=== PATIENT | male | born 1950 | race Two or more races ===

== ENCOUNTER 2024-10-30 17:46 | Inpatient (IN) | payer OTHER ==
[~2024-10-30] VITALS: Ht 165.1 cm; Wt 61.7 kg
[2024-10-30 19:12] LABS: PLATELET COUNT (AUTO) 379 K/uL (150-450); RED BLOOD CELL COUNT(AUTO) 4.36 MIL/uL (4.50-5.90); RED CELL DISTRIBUTION WIDTH 15.0 % (11.5-14.5); WHITE BLOOD COUNT (AUTO) 13.4 K/uL (4.5-11.0)
[2024-10-30 19:14] LABS: SODIUM SERUM 138 mmol/L (136-145)
[2024-10-30 19:15] LABS: CREATININE 1.12 mg/dL (0.60-1.30)
[2024-10-30 19:16] LABS: CALCIUM, TOTAL 8.8 mg/dL (8.8-10.5); GLOMERULAR FILTR. RATE CALC > 60 mL/min (>60); GLUCOSE,RANDOM 116 mg/dL (70-110); UREA NITROGEN, BLOOD 38 mg/dL (7-18)
[2024-10-30] MEDS ORDERED: 0.9% SODIUM CHLORIDE 10 ML SYRINGE IVP PRN (20:00)
[2024-10-30] MEDS: CefTRIAXone 1 GM/DEXTROSE 50 ML IV SCH (20:23)
[2024-10-30] MEDS: SODIUM CHLORIDE 0.9% 1,700 ML IV ONE (20:23)
[2024-10-30 20:27] LABS: LACTIC ACID 1.0 mmol/L (0.4-2.0)
[2024-10-30 20:31] LABS: CALCIUM, TOTAL 8.6 mg/dL (8.8-10.5); CREATININE 1.08 mg/dL (0.60-1.30); GLOMERULAR FILTR. RATE CALC > 60 mL/min (>60); GLUCOSE,RANDOM 110 mg/dL (70-110); SODIUM SERUM 136 mmol/L (136-145); UREA NITROGEN, BLOOD 37 mg/dL (7-18)
[2024-10-30 20:36] LABS: ASPARTATE AMINOTRANSFERASE 70 U/L (15-37); LACTATE DEHYDROGENASE 152 U/L (85-227); TOTAL PROTEIN, SERUM 6.8 g/dL (6.4-8.2)
[2024-10-31 03:20] LABS: APPEARANCE,URINE CLEAR (CLEAR); GLUCOSE, URINE (UA) NEGATIVE (NEGATIVE); LEUKOCYTE ESTERASE ,URINE NEGATIVE (NEGATIVE); NITRATE,URINE NEGATIVE (NEGATIVE); OCCULT BLOOD,URINE NEGATIVE (NEGATIVE); PH,URINE DRUG SCREEN 6.0 (5.0-8.0); SPECIFIC GRAVITIY, URINE 1.021 (1.003-1.030)
[2024-10-31 03:26] LABS: AMPHET/METH SCREEN,URINE NEGATIVE (NEGATIVE); BARBITURATE SCREEN, URINE NEGATIVE (NEGATIVE); CANNABINOID SCREEN,URINE NEGATIVE (NEGATIVE); COCAINE SCREEN,URINE NEGATIVE (NEGATIVE); METHADONE SCREEN, URINE NEGATIVE (NEGATIVE)
[2024-10-31 03:36] LABS: ALCOHOL, URINE DRUG SCREEN NEGATIVE (NEGATIVE)
[2024-10-31] MEDS: VANCOMYCIN 1GM/WATER(PEG/NADA) 200 ML IV ONE (03:50)
[2024-10-31 05:45] VITALS: BP 157/91; PULSE 80; RESP 20; TEMP 98.4; O2SAT 98
[2024-10-31 07:06] LABS: CALCIUM, TOTAL 8.1 mg/dL (8.8-10.5); CREATININE 1.17 mg/dL (0.60-1.30); GLOMERULAR FILTR. RATE CALC > 60 mL/min (>60); GLUCOSE,RANDOM 128 mg/dL (70-110); SODIUM SERUM 139 mmol/L (136-145); UREA NITROGEN, BLOOD 32 mg/dL (7-18)
[2024-10-31 08:00] VITALS: BP 149/76; PULSE 80; RESP 20; TEMP 98.6; O2SAT 98
[2024-10-31] MEDS ORDERED: GADOTERATE MEGLUMINE 10 MMOL/20 ML VIAL IVP ONE (10:31)
[2024-10-31] MEDS ORDERED: LOSA-382 PO (16:57)
[2024-10-31 20:00] VITALS: BP 144/88; PULSE 91; RESP 16; TEMP 99.3; O2SAT 97
[2024-10-31] MEDS: VANCOMYCIN 750 MG/WATER(PEG) 150 ML IV SCH (20:22)
[2024-10-31] MEDS ORDERED: SODIUM CHLORIDE 0.9% 500 ML IV ONE (20:24)
[2024-11-01 04:25] VITALS: BP 162/92; PULSE 76; RESP 16; TEMP 98.8; O2SAT 100
[2024-11-01 07:19] LABS: CALCIUM, TOTAL 8.4 mg/dL (8.8-10.5); CREATININE 1.12 mg/dL (0.60-1.30); GLOMERULAR FILTR. RATE CALC > 60 mL/min (>60); GLUCOSE,RANDOM 101 mg/dL (70-110); SODIUM SERUM 138 mmol/L (136-145); UREA NITROGEN, BLOOD 26 mg/dL (7-18)
[2024-11-01 08:14] VITALS: BP 168/74; PULSE 82; RESP 18; TEMP 99.1; O2SAT 100
[2024-11-01] MEDS: RINGERS SOLUTION,LACTATED 1,000 ML IV SCH (11:17)
[2024-11-01 14:51] VITALS: BP 111/58; PULSE 91; RESP 18; TEMP 98.4; O2SAT 99
[2024-11-01 19:58] VITALS: BP 119/60; PULSE 82; RESP 18; TEMP 98.2; O2SAT 98
[2024-11-02 03:45] VITALS: BP 146/93; PULSE 82; RESP 20; TEMP 98.2; O2SAT 98
[2024-11-02 08:02] LABS: CALCIUM, TOTAL 7.9 mg/dL (8.8-10.5); CREATININE 1.09 mg/dL (0.60-1.30); GLOMERULAR FILTR. RATE CALC > 60 mL/min (>60); GLUCOSE,RANDOM 103 mg/dL (70-110); SODIUM SERUM 138 mmol/L (136-145); UREA NITROGEN, BLOOD 25 mg/dL (7-18)
[2024-11-02 08:34] VITALS: BP 164/91; PULSE 76; RESP 20; TEMP 99; O2SAT 99
[2024-11-02 09:34] VITALS: BP 150/99; PULSE 91; RESP 18; TEMP 98.8; O2SAT 98
[2024-11-02 20:52] VITALS: BP 136/81; PULSE 82; RESP 18; TEMP 98.2; O2SAT 98
[2024-11-03 04:08] VITALS: BP 154/88; PULSE 74; RESP 18; TEMP 99; O2SAT 99
[2024-11-03 06:58] LABS: CALCIUM, TOTAL 8.0 mg/dL (8.8-10.5); CREATININE 1.03 mg/dL (0.60-1.30); GLOMERULAR FILTR. RATE CALC > 60 mL/min (>60); GLUCOSE,RANDOM 142 mg/dL (70-110); SODIUM SERUM 139 mmol/L (136-145); UREA NITROGEN, BLOOD 26 mg/dL (7-18)
[2024-11-03 07:00] VITALS: BP 143/75; PULSE 75; RESP 19; TEMP 99.1; O2SAT 97
[2024-11-03] MEDS: MORPHINE SULFATE 2 MG/ML SYRINGE IVP PRN (09:25)
[2024-11-03 19:32] VITALS: BP 118/69; PULSE 75; RESP 18; TEMP 99; O2SAT 99
[2024-11-04 02:41] VITALS: BP 130/80; PULSE 79; RESP 18; TEMP 98.1; O2SAT 99
[2024-11-04 06:17] LABS: CALCIUM, TOTAL 8.4 mg/dL (8.8-10.5); CREATININE 1.18 mg/dL (0.60-1.30); GLOMERULAR FILTR. RATE CALC > 60 mL/min (>60); GLUCOSE,RANDOM 98 mg/dL (70-110); SODIUM SERUM 138 mmol/L (136-145); UREA NITROGEN, BLOOD 28 mg/dL (7-18)
[2024-11-04 09:03] VITALS: BP 145/74; PULSE 68; RESP 18; TEMP 98.4; O2SAT 99
[2024-11-04 19:45] VITALS: BP 134/73; PULSE 72; RESP 18; TEMP 98.6; O2SAT 98
[2024-11-05 03:55] VITALS: BP 135/77; PULSE 74; RESP 18; TEMP 98.2; O2SAT 98
[2024-11-05 06:59] LABS: CALCIUM, TOTAL 8.3 mg/dL (8.8-10.5); CREATININE 1.01 mg/dL (0.60-1.30); GLOMERULAR FILTR. RATE CALC > 60 mL/min (>60); GLUCOSE,RANDOM 101 mg/dL (70-110); SODIUM SERUM 138 mmol/L (136-145); UREA NITROGEN, BLOOD 25 mg/dL (7-18)
[2024-11-05 09:26] VITALS: BP 133/67; PULSE 59; RESP 18; TEMP 98; O2SAT 98
[2024-11-05 20:00] VITALS: BP 128/56; PULSE 68; RESP 18; TEMP 98.4; O2SAT 99
[2024-11-05] MEDS: HEPARIN SODIUM,PORCINE 5,000 UNITS/ML VIAL SQ SCH (23:35)
[2024-11-06 04:00] VITALS: BP 130/74; PULSE 72; RESP 18; TEMP 98.4; O2SAT 98
[2024-11-06 07:37] LABS: CALCIUM, TOTAL 8.3 mg/dL (8.8-10.5); CREATININE 0.95 mg/dL (0.60-1.30); GLOMERULAR FILTR. RATE CALC > 60 mL/min (>60); GLUCOSE,RANDOM 95 mg/dL (70-110); SODIUM SERUM 137 mmol/L (136-145); UREA NITROGEN, BLOOD 23 mg/dL (7-18)
[2024-11-06] MEDS: ACETAMINOPHEN 325 MG TABLET PO PRN (08:30)
[2024-11-06 08:52] VITALS: BP 159/84; PULSE 76; RESP 18; TEMP 97.7; O2SAT 98
[2024-11-06 13:54] LABS: APPEARANCE,SPUN,BODY FLUID CLEAR (CLEAR); APPEARANCE,UNSPUN,BODY FLUID SLIGHTLY CLOUDY (CLEAR); BODY FLUID RBC 137.0 /cu. mm.; COLOR,BODY FLUID LT YELLOW (LT YELLOW); SPECIMENTYPE,BODY FLUID SYNOVIAL; TOTAL VOLUME,BODY FLUID 0.5 mL; WBC, BODY FLUID 197.77 /cu. mm.
[2024-11-06 13:55] LABS: BASOPHILS,BODY FLUID 0 %; EOSINOPHILS,BF (ANAL) 0 %; LYMPHOCYTES,BODY FLUID 6 %; MONOCYTES,BODY FLUID 13 %; NEUTROPHILS,BODY FLUID 81 %
[2024-11-06 20:02] VITALS: BP 120/68; PULSE 82; RESP 19; TEMP 98.6; O2SAT 99
[2024-11-07 06:32] VITALS: BP 151/72; PULSE 62; RESP 19; TEMP 98.4; O2SAT 99
[2024-11-07 06:50] LABS: CALCIUM, TOTAL 9.1 mg/dL (8.8-10.5); CREATININE 1.23 mg/dL (0.60-1.30); GLOMERULAR FILTR. RATE CALC 58.0 mL/min (>60); GLUCOSE,RANDOM 96.0 mg/dL (70-110); SODIUM SERUM 139.0 mmol/L (136-145); UREA NITROGEN, BLOOD 32.0 mg/dL (7-18)
[2024-11-07 08:30] VITALS: BP 158/82; PULSE 65; RESP 18; TEMP 98.2; O2SAT 100
[2024-11-07] MEDS ORDERED: SODIUM CHLORIDE 0.9% 500 ML IV ONE ×2 (08:42→20:38)
[2024-11-07 20:00] VITALS: BP 146/77; PULSE 70; RESP 18; TEMP 97.5; O2SAT 98
[2024-11-08 04:55] VITALS: BP 136/72; PULSE 97; RESP 18; TEMP 98.1; O2SAT 98
[2024-11-08 07:33] LABS: CALCIUM, TOTAL 9.2 mg/dL (8.8-10.5); CREATININE 1.03 mg/dL (0.60-1.30); GLOMERULAR FILTR. RATE CALC > 60 mL/min (>60); GLUCOSE,RANDOM 133 mg/dL (70-110); SODIUM SERUM 140 mmol/L (136-145); UREA NITROGEN, BLOOD 24 mg/dL (7-18)
[2024-11-08] MEDS: VANCOMYCIN 1GM/WATER(PEG/NADA) 200 ML IV SCH (07:57)
[2024-11-08 08:44] VITALS: BP 145/80; PULSE 79; RESP 18; TEMP 98.4; O2SAT 100
[2024-11-08 20:31] VITALS: BP 111/80; PULSE 79; RESP 18; TEMP 99; O2SAT 96
[2024-11-09 04:42] VITALS: BP 145/85; PULSE 81; RESP 18; TEMP 99; O2SAT 98
[2024-11-09 07:44] LABS: CALCIUM, TOTAL 9.0 mg/dL (8.8-10.5); CREATININE 1.00 mg/dL (0.60-1.30); GLOMERULAR FILTR. RATE CALC > 60 mL/min (>60); GLUCOSE,RANDOM 91 mg/dL (70-110); SODIUM SERUM 140 mmol/L (136-145); UREA NITROGEN, BLOOD 21 mg/dL (7-18)
[2024-11-09 08:17] VITALS: BP 158/93; PULSE 80; RESP 18; TEMP 98.2; O2SAT 99
[2024-11-09 16:30] VITALS: BP 136/85; PULSE 75; RESP 18; TEMP 98.6; O2SAT 99
[2024-11-09 17:30] LABS: PLATELET COUNT (AUTO) 581 K/uL (150-450); RED BLOOD CELL COUNT(AUTO) 3.99 MIL/uL (4.50-5.90); RED CELL DISTRIBUTION WIDTH 15.0 % (11.5-14.5); WHITE BLOOD COUNT (AUTO) 11.5 K/uL (4.5-11.0)
[2024-11-09 19:52] VITALS: BP 122/85; PULSE 89; RESP 18; TEMP 98.1; O2SAT 97
[2024-11-10 04:09] VITALS: BP 153/90; PULSE 83; RESP 19; TEMP 98.8; O2SAT 100
[2024-11-10 08:00] VITALS: BP 139/84; PULSE 73; RESP 20; TEMP 97.9; O2SAT 99
[2024-11-10 08:14] LABS: CALCIUM, TOTAL 8.6 mg/dL (8.8-10.5); CREATININE 1.13 mg/dL (0.60-1.30); GLOMERULAR FILTR. RATE CALC > 60 mL/min (>60); GLUCOSE,RANDOM 108 mg/dL (70-110); SODIUM SERUM 142 mmol/L (136-145); UREA NITROGEN, BLOOD 24 mg/dL (7-18)
[2024-11-10 19:56] VITALS: BP 121/79; PULSE 80; RESP 20; TEMP 98.9; O2SAT 97
[2024-11-11 04:47] VITALS: BP 131/87; PULSE 89; RESP 20; TEMP 99; O2SAT 97
[2024-11-11 06:59] LABS: CALCIUM, TOTAL 9.4 mg/dL (8.8-10.5); CREATININE 1.10 mg/dL (0.60-1.30); GLOMERULAR FILTR. RATE CALC > 60 mL/min (>60); GLUCOSE,RANDOM 97 mg/dL (70-110); SODIUM SERUM 137 mmol/L (136-145); UREA NITROGEN, BLOOD 26 mg/dL (7-18)
[2024-11-11 07:37] VITALS: BP 140/74; PULSE 87; RESP 20; TEMP 99; O2SAT 98
[2024-11-11] MEDS: CEPHALEXIN MONOHYDRATE 500 MG CAPSULE PO SCH (16:27)
[2024-11-11 18:40] VITALS: BP 118/66; RESP 18; O2SAT 95
[2024-11-11 20:32] VITALS: BP 125/70; PULSE 76; RESP 18; TEMP 99.3; O2SAT 98
[2024-11-11] MEDS: SULFAMETHOX/TRIMETH DS 800-160 MG/TABLET PO SCH (20:41)
[2024-11-11] MEDS: ZOLPIDEM TARTRATE 5 MG TABLET PO PRN (21:46)
[2024-11-12 06:05] VITALS: BP 146/86; PULSE 83; RESP 18; TEMP 98.1; O2SAT 97
[2024-11-12 07:36] LABS: CALCIUM, TOTAL 8.4 mg/dL (8.8-10.5); CREATININE 1.18 mg/dL (0.60-1.30); GLOMERULAR FILTR. RATE CALC > 60 mL/min (>60); GLUCOSE,RANDOM 91 mg/dL (70-110); SODIUM SERUM 138 mmol/L (136-145); UREA NITROGEN, BLOOD 27 mg/dL (7-18)
[2024-11-12 08:31] VITALS: BP 142/86; PULSE 79; RESP 18; TEMP 97.8; O2SAT 98
[2024-11-12 20:13] VITALS: BP 108/65; PULSE 66; RESP 18; TEMP 98.8; O2SAT 96
[2024-11-13 03:58] VITALS: BP 117/80; PULSE 70; RESP 18; TEMP 98.4; O2SAT 96
[2024-11-13 06:52] LABS: CALCIUM, TOTAL 8.7 mg/dL (8.8-10.5); CREATININE 1.48 mg/dL (0.60-1.30); GLOMERULAR FILTR. RATE CALC 47.0 mL/min (>60); GLUCOSE,RANDOM 84.0 mg/dL (70-110); SODIUM SERUM 136.0 mmol/L (136-145); UREA NITROGEN, BLOOD 32.0 mg/dL (7-18)
[2024-11-13 08:00] VITALS: BP 103/64; PULSE 80; RESP 18; O2SAT 96
[2024-11-13 16:00] VITALS: BP 126/77; PULSE 72; RESP 18; TEMP 98.2; O2SAT 96
[2024-11-13 20:15] VITALS: BP 102/60; PULSE 69; RESP 18; TEMP 99; O2SAT 99
[2024-11-14 03:10] VITALS: BP 111/64; PULSE 78; RESP 18; TEMP 99; O2SAT 96
[2024-11-14 08:04] VITALS: BP 114/70; PULSE 79; RESP 18; TEMP 99; O2SAT 97
[2024-11-14 13:18] VITALS: BP 121/68; RESP 16; O2SAT 97
[2024-11-14 17:54] VITALS: BP 121/72; RESP 18; O2SAT 98
[2024-11-14 20:45] VITALS: BP 128/76; PULSE 71; RESP 18; TEMP 98.6; O2SAT 97
[2024-11-15 04:30] VITALS: BP 116/60; PULSE 74; RESP 18; TEMP 98.2; O2SAT 96
[2024-11-15 06:54] LABS: PLATELET COUNT (AUTO) 455 K/uL (150-450); RED BLOOD CELL COUNT(AUTO) 4.16 MIL/uL (4.50-5.90); RED CELL DISTRIBUTION WIDTH 14.9 % (11.5-14.5); WHITE BLOOD COUNT (AUTO) 9.6 K/uL (4.5-11.0)
[2024-11-15 06:59] LABS: CALCIUM, TOTAL 9.8 mg/dL (8.8-10.5); CREATININE 1.69 mg/dL (0.60-1.30); GLOMERULAR FILTR. RATE CALC 40.0 mL/min (>60); GLUCOSE,RANDOM 88.0 mg/dL (70-110); SODIUM SERUM 134.0 mmol/L (136-145); UREA NITROGEN, BLOOD 41.0 mg/dL (7-18)
[2024-11-15 08:21] VITALS: BP 118/76; PULSE 77; RESP 18; TEMP 98; O2SAT 98
[2024-11-15] MEDS: SODIUM ZIRCONIUM CYCLOSILICATE 5 GM POWDER PACKET PO ONE (11:00)
[2024-11-15] MEDS: SODIUM CHLORIDE 0.9% 1,000 ML IV ONE (11:00)
[2024-11-15 16:55] VITALS: BP 151/87; PULSE 87; RESP 18; O2SAT 99
[2024-11-15 20:01] VITALS: BP 115/69; PULSE 72; RESP 18; TEMP 98.4; O2SAT 97
[2024-11-16 04:40] VITALS: BP 126/68; PULSE 54; RESP 18; TEMP 97.7; O2SAT 100
[2024-11-16 08:42] VITALS: BP 148/81; PULSE 63; RESP 18; TEMP 98.2; O2SAT 100
[2024-11-16] MEDS: CIPROFLOXACIN HCL 0.3% 2.5 ML OPHTHALMIC SOLUTION OD SCH (10:00)
[2024-11-16 11:03] LABS: CALCIUM, TOTAL 9.8 mg/dL (8.8-10.5); CREATININE 1.67 mg/dL (0.60-1.30); GLOMERULAR FILTR. RATE CALC 41.0 mL/min (>60); GLUCOSE,RANDOM 82.0 mg/dL (70-110); SODIUM SERUM 136.0 mmol/L (136-145); UREA NITROGEN, BLOOD 41.0 mg/dL (7-18)
[2024-11-16 19:40] VITALS: BP 132/78; PULSE 82; RESP 18; TEMP 98.8; O2SAT 98
[2024-11-17 05:04] VITALS: BP 132/86; PULSE 75; RESP 18; TEMP 98.1; O2SAT 99
[2024-11-17 08:26] VITALS: BP 127/86; PULSE 73; RESP 18; TEMP 98.2; O2SAT 96
[2024-11-17] MEDS ORDERED: AMLO-257 PO (10:11)
[2024-11-17] MEDS ORDERED: CEPH-558 PO (10:12)
[2024-11-17] MEDS ORDERED: CIPR2.5D17 OD (10:14)
[2024-11-17] MEDS ORDERED: ACET-2247 PO (10:15)
[2024-11-17 11:03] LABS: CALCIUM, TOTAL 10.1 mg/dL (8.8-10.5); CREATININE 1.45 mg/dL (0.60-1.30); GLOMERULAR FILTR. RATE CALC 48.0 mL/min (>60); GLUCOSE,RANDOM 118.0 mg/dL (70-110); SODIUM SERUM 135.0 mmol/L (136-145); UREA NITROGEN, BLOOD 35.0 mg/dL (7-18)
== END 2024-11-17 15:15 | DRG 871 ==
LOC: EMS 17:46 → EDH 23:44 → 6S 10-31 05:41
PROVIDERS: ADMIT Internal Medicine; ATTEND Internal Medicine
PROC: GZ58ZZZ Individual Psychotherapy, Cognitive-Behavioral (ICD-10-PCS; 2024-11-01)
PROC: GZ56ZZZ Individual Psychotherapy, Supportive (ICD-10-PCS; 2024-11-01)
PROC: 0SJG3ZZ Inspection of Left Ankle Joint, Percutaneous Approach (ICD-10-PCS; principal; 2024-11-06)
DX: A41.9 Sepsis, unspecified organism (principal); G92.9 Unspecified toxic encephalopathy; M00.9 Pyogenic arthritis, unspecified; L03.116 Cellulitis of left lower limb; N17.9 Acute kidney failure, unspecified; D64.9 Anemia, unspecified; F29 Unspecified psychosis not due to a substance or known physiological condition; S93.419A Sprain of calcaneofibular ligament of unspecified ankle, initial encounter; S90.02XA Contusion of left ankle, initial encounter; S80.02XA Contusion of left knee, initial encounter; E87.5 Hyperkalemia; I10 Essential (primary) hypertension; R74.01 Elevation of levels of liver transaminase levels; R62.7 Adult failure to thrive; X58.XXXA Exposure to other specified factors, initial encounter; Z88.0 Allergy status to penicillin; Y93.89 Activity, other specified; Y92.89 Other specified places as the place of occurrence of the external cause; Y99.8 Other external cause status; Z91.199 Patient's noncompliance with other medical treatment and regimen due to unspecified reason
CPT/HCPCS: 71045; 73722; 76942; 80048; 80053; 80202; 80307; 81003; 83036; 83605; 83615; 84132; 84145; 85025; 85610; 85730; 87040; 87070; 87081; 87205; 89051; 97163; 97530; 99285; G0378; G0480; J0696; J1644; J2270; J7030; J7040; J7120; 36415-L1; 36415-TC

== ENCOUNTER 2024-12-05 15:15 | Inpatient (IN) | payer OTHER ==
[~2024-12-05] VITALS: Ht 167.6 cm; Wt 47.7 kg
[~2024-12-05 15:15] MED LIST: ACET-2247 PO; AMLO-257 PO; CEPH-558 PO; CIPR2.5D17 OD
[2024-12-05 15:52] LABS: PLATELET COUNT (AUTO) 423 K/uL (150-450); RED BLOOD CELL COUNT(AUTO) 4.12 MIL/uL (4.50-5.90); RED CELL DISTRIBUTION WIDTH 15.8 % (11.5-14.5); WHITE BLOOD COUNT (AUTO) 9.7 K/uL (4.5-11.0)
[2024-12-05 16:07] LABS: CALCIUM, TOTAL 8.7 mg/dL (8.8-10.5); CREATININE 1.05 mg/dL (0.60-1.30); GLOMERULAR FILTR. RATE CALC > 60 mL/min (>60); GLUCOSE,RANDOM 143 mg/dL (70-110); SODIUM SERUM 147 mmol/L (136-145); UREA NITROGEN, BLOOD 36 mg/dL (7-18)
[2024-12-05 16:14] LABS: COVID AG,FIA SOURCE NASAL SWAB
[2024-12-05] MEDS: ACETAMINOPHEN 500 MG TABLET PO ONE (16:46)
[2024-12-05 16:50] LABS: SARS-COV2 (COVID) ANTIGEN,FIA Negative (Negative)
[2024-12-05] MEDS: SODIUM CHLORIDE 0.45% 1,000 ML IV ONE (19:56)
[2024-12-05 22:03] VITALS: BP 144/93; PULSE 72; RESP 18; TEMP 98.1; O2SAT 97
[2024-12-05] MEDS: ACETAMINOPHEN 325 MG TABLET PO PRN (23:53)
[2024-12-05] MEDS: HEPARIN SODIUM,PORCINE 5,000 UNITS/ML VIAL SQ SCH (23:53)
[2024-12-06 04:07] VITALS: BP 155/88; PULSE 66; RESP 18; TEMP 98.2; O2SAT 96
[2024-12-06 06:05] LABS: APPEARANCE,URINE CLEAR (CLEAR); GLUCOSE, URINE (UA) NEGATIVE (NEGATIVE); LEUKOCYTE ESTERASE ,URINE TRACE (NEGATIVE); NITRATE,URINE NEGATIVE (NEGATIVE); OCCULT BLOOD,URINE NEGATIVE (NEGATIVE); PH,URINE DRUG SCREEN 6.0 (5.0-8.0); SPECIFIC GRAVITIY, URINE 1.027 (1.003-1.030)
[2024-12-06 06:07] LABS: SQUAMOUS EPITHELIAL CELL,UR Few /LPF (None Seen)
[2024-12-06 06:11] LABS: AMPHET/METH SCREEN,URINE NEGATIVE (NEGATIVE); BARBITURATE SCREEN, URINE NEGATIVE (NEGATIVE); CANNABINOID SCREEN,URINE NEGATIVE (NEGATIVE); COCAINE SCREEN,URINE NEGATIVE (NEGATIVE); METHADONE SCREEN, URINE NEGATIVE (NEGATIVE)
[2024-12-06 06:25] LABS: ALCOHOL, URINE DRUG SCREEN NEGATIVE (NEGATIVE)
[2024-12-06 07:39] LABS: CALCIUM, TOTAL 8.3 mg/dL (8.8-10.5); CREATININE 1.12 mg/dL (0.60-1.30); GLOMERULAR FILTR. RATE CALC > 60 mL/min (>60); GLUCOSE,RANDOM 126 mg/dL (70-110); SODIUM SERUM 142 mmol/L (136-145); UREA NITROGEN, BLOOD 30 mg/dL (7-18)
[2024-12-06 08:34] VITALS: BP 146/89; PULSE 70; RESP 18; TEMP 97.9; O2SAT 100
[2024-12-06] MEDS: POTASSIUM CHLORIDE 20 MEQ ER TABLET PO ONE (14:40)
[2024-12-06 21:01] VITALS: BP 146/81; PULSE 74; RESP 20; TEMP 98.4; O2SAT 98
[2024-12-07 06:09] VITALS: BP 158/91; PULSE 54; RESP 20; TEMP 98.2; O2SAT 98
[2024-12-07 09:23] VITALS: BP 196/92; PULSE 58; RESP 18; TEMP 98.2; O2SAT 100
[2024-12-07 11:59] VITALS: BP 151/79; PULSE 70; RESP 18; TEMP 98.1; O2SAT 98
[2024-12-07 19:04] VITALS: BP 140/84; PULSE 77; RESP 18; TEMP 98.2; O2SAT 97
[2024-12-08 03:49] VITALS: BP 139/84; PULSE 63; RESP 19; TEMP 98.3; O2SAT 97
[2024-12-08 08:59] VITALS: BP 163/80; PULSE 55; RESP 18; TEMP 98.6; O2SAT 98
[2024-12-08] MEDS ORDERED: AMLO-258 PO (11:17)
[2024-12-08] MEDS ORDERED: LOSA-381 PO (11:18)
[2024-12-08] MEDS: LOSARTAN POTASSIUM 25 MG TABLET PO ONE (11:45)
[2024-12-09] MEDS ORDERED: LOSARTAN POTASSIUM 25 MG TABLET PO SCH (09:00)
== END 2024-12-08 14:56 | DRG 641 ==
LOC: EMS 15:15 → EDH 18:32 → 6N 21:19
PROVIDERS: ADMIT Internal Medicine; ATTEND Internal Medicine
DX: R62.7 Adult failure to thrive (principal); E87.0 Hyperosmolality and hypernatremia; Z68.1 Body mass index [BMI] 19.9 or less, adult; I10 Essential (primary) hypertension; F29 Unspecified psychosis not due to a substance or known physiological condition; E87.6 Hypokalemia; D64.9 Anemia, unspecified; Z20.822 Contact with and (suspected) exposure to COVID-19; Z88.0 Allergy status to penicillin; Z79.899 Other long term (current) drug therapy
CPT/HCPCS: 80048; 80307; 81001; 82140; 84132; 84443; 85025; 96360; 97163; 99285; G0480; J1644; 36415-L1; 36415-TC